=== PATIENT | female | born 1935 | race Caucasian/White ===

== ENCOUNTER 2018-05-16 13:09 | Emergency (ER) | payer MEDICARE ==
[~2018-05-16] VITALS: Ht 165.1 cm; Wt 55.1 kg
[2018-05-16 13:26] VITALS: BP 127/75
[2018-05-16 14:28] LABS: BASOPHILS # (AUTO) 0.02 x10^3/uL (0-0.1); BASOPHILS % (AUTO) 0 % (0-1); EOSINOPHILS # (AUTO) 0.03 x10^3/uL (0-0.4); EOSINOPHILS % (AUTO) 1 % (1-7); LYMPHOCYTES % (AUTO) 13 % (22-44); MD NO; MEAN CORPUSCULAR HEMOGLOBIN 30.8 pg (27.0-34.8); MEAN CORPUSCULAR HGB CONC 34.2 g/dL (32.4-35.8); MEAN PLATELET VOLUME 7.6 fL (7.4-10.4); MONOCYTES # (AUTO) 0.52 x10^3/uL (0.2-0.8); MONOCYTES % (AUTO) 9 % (2-9); NEUTROPHILS # (AUTO) 4.31 x10^3/uL (1.8-6.8); NEUTROPHILS % (AUTO) 77 % (42-75); PLATELET COUNT 273 x10^3/uL (130-400); RED BLOOD COUNT 4.45 x10^6/uL (3.82-5.3); RED CELL DISTRIBUTION WIDTH 12.6 % (9.6-15.2)
[2018-05-16 14:36] LABS: ALBUMIN 3.7 g/dL (3.4-5.0); ANION GAP 9 mmol/L (5-15); CALCIUM 8.6 mg/dL (8.5-10.1); CHLORIDE 101 mmol/L (98-107)
[2018-05-16 14:43] LABS: ALANINE AMINOTRANSFERASE 140 U/L (12-78); ALKALINE PHOSPHATASE 150 U/L (45-117); BILIRUBIN,TOTAL 1.4 mg/dL (0.2-1.0); TOTAL PROTEIN 7.6 g/dL (6.4-8.2)
[2018-05-16] MEDS ORDERED: ONDA4TAB12 PO (15:58)
[2018-05-16] MEDS ORDERED: NITR100C56 PO (15:58)
[2018-05-16] MEDS ORDERED: ATIVAN PO (15:58)
[2018-05-16] MEDS ORDERED: PHEN-418 PO (16:00)
[2018-05-16 16:11] LABS: CULTURE INDICATED? YES; MICROSCOPIC INDICATED
== END 2018-05-16 17:36 | disposition home or self-care (01) ==
LOC: ED 14:06
DX: N30.00 Acute cystitis without hematuria (principal); R74.0 Nonspecific elevation of levels of transaminase and lactic acid dehydrogenase [LDH]
CPT/HCPCS: 36415; 71045; 76700; 80053; 81001; 83690; 85025; 87086; 93005; 99284